=== PATIENT | male | born 1995 | race Hispanic/Latino ===

== ENCOUNTER 2020-04-02 18:31 | Emergency (ER) | payer OTHER, SELFPAY ==
--- NOTE | ~2020-04-02 | CT_ITS ---
EXAMINATION: CT LE LT w con DATE: 04/02/2020 21:43 INDICATION: Increasing left lower leg pain and edema post recent ORIF of a left tibial fracture. TECHNIQUE: High resolution computed tomography (CT) of the left lower leg was performed with 100 mL O mnipaque-350 intravenous contrast. Additional sagittal and coronal reconstructions were performed. Au tomated exposure control and iterative reconstruction technique were employed. The dose-length produc t was 1308.12 mGy-cm. COMPARISON: None FINDINGS: Oblique mildly comminuted mid diaphyseal fracture of the left tibia with antegrade intramedullary frankie with proximal and distal interlocking screw fixation which is in near-anatomic alignment. There is a lso an unfixed mildly comminuted mid diaphyseal fracture of the left fibula with small lateral sided butterfly fragment which is also in near-anatomic alignment. There is some developing nonbridging arnoldo nataly formation developing along the posterior, lateral and anterolateral margins of the tibial fractur e. There is subcutaneous edema beginning at the distal thigh, most prominent medial and lateral to th e patella and the more diffusely about the periphery of the left calf and distally over the dorsum of the foot. No abscess. Small left knee joint effusion without significant enhancing peripheral synovi tis or inflammatory stranding. There is a small amount of expected postoperative gas in the soft tiss ues in the vicinity proximal interlocking screw. No evident atherosclerotic disease along the arterie s of the left lower leg with three-vessel runoff to the ankle. The deep veins of the left calf extend ing to the proximal left popliteal vein. Well opacified with contrast with no evident deep venous thr ombosis. There appears be a central filling defect along the left greater saphenous vein from the ank le to the left [id number] which could represent nonocclusive thrombus or mixing artifact due to t he phase of contrast.. IMPRESSION: 1. Early changes of healing and internally fixed mildly comminuted mid diaphyseal fracture of the lef t tibia which is in near-anatomic alignment. 2. Unfixed mildly comminuted mid fibular diaphyseal fracture also in near-anatomic alignment. 3. No abscess. 4. Central filling defect extending along the greater saphenous vein of the calf which could represen t nonocclusive thrombus or mixing artifact due to phase of contrast. No evident deep venous thrombosi s. Reviewed, dictated and finalized at location H. LR[facility] SCOUT IMPRESSION: 1. Early changes of healing and internally fixed mildly comminuted mid diaphyse al fracture of the left tibia which is in near-anatomic alignment. 2. Unfixed mildly comminuted mid fibular diaphyseal fracture also in near-anato lalo alignment. 3. No abscess. 4. Central filling defect extending along the greater saphenous vein of the arnoldo f which could represent nonocclusive thrombus or mixing artifact due to phase o f contrast. No evident deep venous thrombosis.
[2020-04-02 18:36] VITALS: BP 140/80; PULSE 127; RESP 18; TEMP 36.7; O2SAT 99
--- NOTE | 2020-04-02 19:54 | ED.LOWEXIN ---
HPI - Extremity Injury (Lower) General Chief Complaint: Extremity Injury, Lower Stated Complaint: l leg fracture, increased swelling Time Seen by Provider: 04/02/20 19:45 History of Present Illness HPI Narrative: previously healthy 24 yo presents to the ED for leg swelling. He suffered a tib/fib fracture of the LLE and had sugery at [facility] to repair it last wednesday. He is concerned because it has begun to swell more and become more painful he attempted to cantact his surgeon withut success. He is on lovenox for DVT prophylaxis. No fever, numbness, weakness. Related Data Home Medications Medication Instructions Recorded Confirmed docusate sodium [DOK] 100 mg PO BID 04/02/20 enoxaparin [Lovenox] mg SUBCUT BID 04/02/20 ergocalciferol (vitamin D2) unit PO WEEKLY 04/02/20 oxycodone-acetaminophen 1 tablet PO Q4H PRN 04/02/20 Allergies Allergy/AdvReac Type Severity Reaction Status Date / Time No Known Allergies Allergy Verified 04/02/20 19:47 Review of Systems Review of Systems: All systems reviewed & are unremarkable except as noted in HPI and below Constitutional: Constitutional: Denies fever(s) Cardiovascular: Cardiovascular: Denies chest pain Respiratory: Respiratory: Denies dyspnea Gastrointestinal: Gastrointestinal: Denies abdominal pain and Denies nausea Neurologic: Denies numbness and Denies weakness FOR[facility]LY [facility] Past Medical History Medical History (Updated 04/02/20 @ 22:53 by Tayo Montenegro MD) Fracture of left tibia and fibula Surgical History Surgical History (Updated 04/02/20 @ 22:53 by Tayo Montenegro MD) History of orthopedic surgery Social History Social History (Updated 04/02/20 @ 22:54 by Tayo Montenegro MD) Smoking status: Never smoker Exam Const: General: healthy appearing, no acute distress and alert Orientation/consciousness: patient oriented x3 HENMT: Head: normal to inspection Neck: Neck: normal visual inspection and no lymphadenopathy Chest: Chest palpation & inspection: no tenderness Resp: Effort & Inspection: normal respiratory effort Cardio: Jugular venous distension: no JVD Rate: regular rate Other: 2+ left DP Skin: Other: erythema of the left lower leg. fluctuance at lateral calf incision Neuro: General: patient oriented x3 and moves all extremities Speech: normal speech Extrem: General: edema left (moderate) Psych: Appearance: well kempt Affect: normal affect Course Vital Signs Vital signs: Vital Signs Temperature 36.7 C 04/02/20 18:36 Pulse Rate 127 H 04/02/20 18:36 Respiratory Rate 18 04/02/20 18:36 Blood Pressure 140/80 04/02/20 18:36 Pulse Oximetry 99 04/02/20 18:36 Temperature 36.7 C 04/02/20 18:36 Pulse Rate 127 H 04/02/20 18:36 Respiratory Rate 18 04/02/20 18:36 Blood Pressure 140/80 04/02/20 18:36 Pulse Oximetry 99 04/02/20 18:36 MDM - Extremity Injury (Lower) MDM Narrative Medical decision making narrative: No abscess or evident DVT on CT. exam concerning for cellulitis. Will start on keflex. Already receiving DVT prophylaxis. Differential Diagnosis Differential diagnosis: Likely other (abscess, cellulitis, seroma) Medical Records Attestation: I reviewed the patient's medical records. Lab Data Attestation: I reviewed the patient's lab results. Result diagrams: 04/02/20 20:11 04/02/20 20:11 Labs: Lab Results 04/02/20 04/02/20 Range/Units 20:11 20:11 WBC 8.4 (4.5-10.0) K/mm3 RBC 4.61 (4.6-6.20) M/mm3 Hgb 13.8 L (14.0-18.0) g/dL Hct 38.8 L (42.0-52.0) % MCV 84.2 (80-100) fl MCH 29.9 (26-34) pg MCHC 35.6 (32-36) g/dl RDW 12.6 (11.5-14.5) % Plt Count 369 (150-375) k/mm3 MPV 9.2 (7.4-10.4) fl Immature Gran % (Auto) 0.6 H (0-0.5) % Neut % (Auto) 55.3 (45.5-73.1) % Lymph % (Auto) 29.8 (18.3-44.2) % Kings % (Auto) 9.6 H (2.6-8.5) % Eos % (Auto) 4.5 H (0-4.4) % Baso % (Auto) 0.2 (0.2-1.2
[2020-04-02 20:18] LABS: Basophils Percent Auto 0.2 % (0.2-1.2); Eosinophils Absolute Auto 0.4 K/mm3 (0-0.3); Eosinophils Percent Auto 4.5 % (0-4.4); Hematocrit 38.8 % (42.0-52.0); Hemoglobin 13.8 g/dL (14.0-18.0); Immature Granulocyte Absolute 0.05 K/mm3 (0.00-0.031); Immature Granulocyte Percent A 0.6 % (0-0.5); Lymphocytes Absolute Auto 2.49 K/mm3 (0.9-3.2); Lymphocytes Percent Auto 29.8 % (18.3-44.2); Mean Corpuscular HGB Conc 35.6 g/dl (32-36); Mean Corpuscular Hemoglobin 29.9 pg (26-34); Mean Corpuscular Volume 84.2 fl (80-100); Mean Platelet Volume 9.2 fl (7.4-10.4); Monocytes Absolute Auto 0.8 K/mm3 (0.1-0.6); Monocytes Percent Auto 9.6 % (2.6-8.5); Neutrophils Absolute Auto 4.6 K/mm3 (1.3-6.7); Neutrophils Percent Auto 55.3 % (45.5-73.1); Platelet Count Result 369 k/mm3 (150-375); Red Blood Count 4.61 M/mm3 (4.6-6.20); Red Cell Distribution Width 12.6 % (11.5-14.5); White Blood Count 8.4 K/mm3 (4.5-10.0)
[2020-04-02 20:42] LABS: Anion Gap 7 mmol/L (8-16); Blood Urea Nitrogen 15 mg/dL (9-20); Calcium 8.7 mg/dL (8.4-10.2); Carbon Dioxide 32 mmol/L (22-30); Chloride 97 mmol/L (98-107); Estimated CRCL calculation 127 ml/min; Estimated Glomerular Filt Rate > 60; Glucose 102 mg/dL (75-110); Sodium 136 mmol/L (137-145)
[2020-04-02 23:00] VITALS: BP 116/67; PULSE 68; RESP 14; TEMP 36.8; O2SAT 99
== END 2020-04-02 23:02 | disposition home or self-care (01) ==
PROVIDERS: Emergency Provider Emergency Medicine
DX: T81.41XA Infection following a procedure, superficial incisional surgical site, initial encounter (principal); L03.116 Cellulitis of left lower limb
CPT/HCPCS: 36415; 73701; 80048; 85025; 96365; 99284; J3370; Q9967

== ENCOUNTER 2020-05-01 18:50 | Emergency (ER) | payer OTHER, SELFPAY ==
--- NOTE | ~2020-05-01 | CT_ITS ---
EXAMINATION: CT abdomen pelvis w con EXAM DATE: 05/01/2020 20:15 INDICATION: Right lower quadrant pain. TECHNIQUE: Spiral CT of the abdomen and pelvis was performed following intravenous injection of 100 m L Omnipaque 350. Axial, coronal and sagittal images were reviewed. The dose-length product (DLP) fo r this examination was 867.00 mGy-cm. The exposure was tailored according to patient size (auto mA e xposure control), and iterative reconstruction (ASIR) was used as additional dose reduction technique . There is no prior study for comparison. FINDINGS: The liver, spleen, adrenal glands and pancreas are unremarkable. Gallbladder is unremarkab le. No biliary obstruction. Portal and splenic veins are patent. Kidneys enhance symmetrically. T here is no hydronephrosis. The prostate is unremarkable. The bladder is unremarkable. There is no retroperitoneal or pelvic lymphadenopathy. The appendix is normal. The stomach and small bowel are unremarkable. There is expected amount of c olonic stool. No free intraperitoneal gas. The heart is normal in size. There are no pericardial or pleural effusions. The lung bases are unremarkable. The bones are normal. IMPRESSION: Unremarkable CT abdomen pelvis examination. Reviewed, dictated and finalized at location A. ER HAND
[2020-05-01 18:56] VITALS: BP 147/76; PULSE 103; RESP 18; TEMP 36.7; O2SAT 99
[2020-05-01 19:18] LABS: Basophils Percent Auto 0.4 % (0.2-1.2); Eosinophils Absolute Auto 0.1 K/mm3 (0-0.3); Eosinophils Percent Auto 0.7 % (0-4.4); Hemoglobin 15.5 g/dL (14.0-18.0); Immature Granulocyte Absolute 0.03 K/mm3 (0.00-0.031); Immature Granulocyte Percent A 0.3 % (0-0.5); Lymphocytes Absolute Auto 2.49 K/mm3 (0.9-3.2); Lymphocytes Percent Auto 22.1 % (18.3-44.2); Mean Corpuscular HGB Conc 34.4 g/dl (32-36); Mean Corpuscular Hemoglobin 29.6 pg (26-34); Mean Platelet Volume 9.6 fl (7.4-10.4); Monocytes Absolute Auto 0.7 K/mm3 (0.1-0.6); Monocytes Percent Auto 6.2 % (2.6-8.5); Neutrophils Absolute Auto 7.9 K/mm3 (1.3-6.7); Neutrophils Percent Auto 70.3 % (45.5-73.1); Platelet Count Result 420 k/mm3 (150-375); Red Blood Count 5.23 M/mm3 (4.6-6.20); Red Cell Distribution Width 12.8 % (11.5-14.5); White Blood Count 11.3 K/mm3 (4.5-10.0)
[2020-05-01] MEDS: FAMOTIDINE 20 MG/2 ML VIAL IV PUSH (19:19)
[2020-05-01] MEDS: ONDANSETRON INJ 4 MG/2 ML VIAL IV PUSH (19:19)
[2020-05-01] MEDS: SODIUM CHLORIDE 0.9% IV 1,000 ML 999 ML IV CONT (19:20)
[2020-05-01 19:29] LABS: Alanine Aminotransferase 79 U/L (4-50); Albumin Level 4.6 g/dL (3.5-5.1); Alkaline Phosphatase 109 U/L (38-126); Anion Gap 11 mmol/L (8-16); Aspartate Amino Transferase 37 U/L (17-59); Bilirubin,Total 0.6 mg/dL (0.2-1.3); Blood Urea Nitrogen 12 mg/dL (9-20); Calcium 9.7 mg/dL (8.4-10.2); Carbon Dioxide 27 mmol/L (22-30); Chloride 100 mmol/L (98-107); Estimated CRCL calculation 121 ml/min; Estimated Glomerular Filt Rate > 60; Glucose 101 mg/dL (75-110); Lipase 43 U/L (23-300); Sodium 138 mmol/L (137-145)
--- NOTE | 2020-05-01 20:53 | ED.ABDPAIN ---
HPI - Abdominal Pain General Chief Complaint: Abdominal Pain Stated Complaint: RLQ pain Time Seen by Provider: 05/01/20 18:51 Source: patient and family Mode of arrival: ambulatory Limitations: no limitations History of Present Illness HPI narrative: Patient is a 24-year-old male who presents to emergency department for evaluation of right lower abdominal pain patient was bending over to itch his leg when he developed right lower belly pain worse with activity and movement patient denies any fever chills nausea vomiting patient has been given himself Lovenox shots in this location due to a left lower extremity fracture Related Data Home Medications Medication Instructions Recorded Confirmed docusate sodium [DOK] 100 mg PO BID 04/02/20 enoxaparin [Lovenox] mg SUBCUT BID 04/02/20 ergocalciferol (vitamin D2) unit PO WEEKLY 04/02/20 oxycodone-acetaminophen 1 tablet PO Q4H PRN 04/02/20 cyclobenzaprine 10 mg PO TID 05/01/20 05/01/20 Allergies Allergy/AdvReac Type Severity Reaction Status Date / Time No Known Allergies Allergy Verified 04/02/20 19:47 Review of Systems Review of Systems: All systems reviewed & are unremarkable except as noted in HPI and below PMFSH Past Medical History Medical History Fracture of left tibia and fibula Surgical History Surgical History History of orthopedic surgery Social History Social History Smoking status: Never smoker Exam Narrative: Exam Narrative: GENERAL: Well-appearing, well-nourished, and in no acute distress. HEAD: Normocephalic, atraumatic. EYES: PERRLA and EOMI. ENT: Nares clear, no rhinorrhea or epistaxis. Mucous membranes moist. CHEST: Clear to auscultation. No respiratory distress. No wheezes rales or rhonchi HEART: Regular rate and rhythm. No murmur heard. Normal peripheral pulses. ABDOMEN: Soft, tenderness of the right lower quadrant soft tissues no erythema swelling or deformities, nondistended EXTREMITIES: Normal range of motion. No edema. SKIN: Warm, dry, no rash. NEURO: No focal deficits. Alert and oriented x3. PSYCH: Normal mood and affect. Course Course Emergency Course: Patient in the room no distress aware of case findings treatment plan diagnosis no high risk changes in the blood work or imaging felt to likely be related to his Lovenox shots Vital Signs Vital signs: Vital Signs Temperature 98.1 F 05/01/20 18:56 Pulse Rate 103 H 05/01/20 18:56 Respiratory Rate 18 05/01/20 18:56 Blood Pressure 147/76 H 05/01/20 18:56 Pulse Oximetry 99 05/01/20 18:56 Temperature 98.1 F 05/01/20 18:56 Pulse Rate 103 H 05/01/20 18:56 Respiratory Rate 18 05/01/20 18:56 Blood Pressure 147/76 H 05/01/20 18:56 Pulse Oximetry 99 05/01/20 18:56 MDM - Abdominal Pain MDM Narrative Medical decision making narrative: Patient with belly pain of unknown etiology in the room in no distress aware of case findings treatment plan diagnosis agreeing to follow-up as directed or to return if symptoms worsen or concerns patient afebrile nontoxic-appearing no distress felt appropriate for outpatient reevaluation Lab Data Result diagrams: 05/01/20 19:11 05/01/20 19:11 Labs: Lab Results 05/01/20 05/01/20 Range/Units 19:11 19:11 WBC 11.3 H (4.5-10.0) K/mm3 RBC 5.23 (4.6-6.20) M/mm3 Hgb 15.5 (14.0-18.0) g/dL Hct 45.0 (42.0-52.0) % MCV 86.0 (80-100) fl MCH 29.6 (26-34) pg MCHC 34.4 (32-36) g/dl RDW 12.8 (11.5-14.5) % Plt Count 420 H (150-375) k/mm3 MPV 9.6 (7.4-10.4) fl Immature Gran % (Auto) 0.3 (0-0.5) % Neut % (Auto) 70.3 (45.5-73.1) % Lymph % (Auto) 22.1 (18.3-44.2) % [place] % (Auto) 6.2 (2.6-8.5) % Eos % (Auto) 0.7 (0-4.4) % Baso % (Auto) 0.4 (0.2-1.2) % Lymph # (Auto) 2.4
[2020-05-01 21:15] LABS: Add Urine Microscopic? NO; Appearance Urine Clear (Clear); Bilirubin Urine Negative (Negative); Blood Urine Negative (Negative); Color Urine Yellow (Yellow); Glucose Urine UA Negative (Negative); Ketones Urine Negative (Negative); Leukocyte Esterase Ur Negative LEU/UL (Negative); Nitrate Urine Negative (Negative); Protein Urine Negative (Negative); Urobilinogen Urine Negative mg/dL (<2.0)
[2020-05-01 21:19] LABS: Specific Grav Ur 1.033 (1.001-1.035)
[2020-05-01 21:33] VITALS: BP 120/68; PULSE 76; RESP 16; O2SAT 99
== END 2020-05-01 21:34 | disposition home or self-care (01) ==
PROVIDERS: Emergency Medicine Emergency Medical Services; Emergency Provider Emergency Medicine
DX: R10.31 Right lower quadrant pain (principal)
CPT/HCPCS: 36415; 74177; 80053; 81003; 83690; 85025; 96361; 96374; 96375; 99284; J0131; J2405; J7030; Q9967

== ENCOUNTER 2022-04-10 10:06 | Emergency (ER) | payer SELFPAY ==
--- NOTE | ~2022-04-10 | XR_ITS ---
XR tibia fibula LT 2V DATE: 04/10/2022 11:06 INDICATION: Swelling and redness of the left lower leg. Previous fracture and surgery TECHNIQUE: AP and lateral views of left lower leg COMPARISON: None FINDINGS: There is an intramedullary line of the tibia with a proximal and a distal transverse interl ocking screws. There are old healed fractures of mid shafts of the tibia and fibula. No recent fracture or dislocation, periosteal reaction or bone destruction. Normal alignment at the k nee and ankle joints. IMPRESSION: Status post ORIF tibial shaft fracture. Healed midshaft fractures of tibia and fibula No acute finding is noted Reviewed, dictated and finalized at location A. STANT PROFESSOR OF RADIOLOGY IMPRESSION: Status post ORIF tibial shaft fracture. Healed midshaft fractures o f tibia and fibula No acute finding is noted
--- NOTE | ~2022-04-10 | US_ITS ---
US venous doppler [facility] DATE: 04/10/2022 10:48 INDICATION: Left lower extremity pain TECHNIQUE: Real-time and color flow imaging and Doppler analysis of the veins of the left lower extre mity COMPARISON: None FINDINGS: There is spontaneous and phasic flow and normal augmentation and color flow signal and norm al compression of the deep veins of the left lower extremity. Left greater saphenous vein is patent. IMPRESSION: No evidence of deep venous thrombosis of left lower extremity Reviewed, dictated and finalized at Location A. Reviewed, dictated and finalized at location A. R LAYER HELPER
[2022-04-10 10:07] VITALS: BP 137/78; PULSE 124; RESP 18; TEMP 36.7; O2SAT 98
--- NOTE | 2022-04-10 10:33 | ED.LOWEXIN ---
HPI - Extremity Injury (Lower) General Chief Complaint: Extremity Injury, Lower Stated Complaint: LEFT LEG PAIN Time Seen by Provider: 04/10/22 10:22 History of Present Illness HPI Narrative: Patient is a 26-year-old male here for evaluation of mild left lower extremity swelling and pain over the past day. Patient noticed this when he was getting ready for bed last evening. No known trauma or break in skin integrity. Patient has not taken any medicine for his pain. Patient has a history of tib/fib fracture that underwent repair 2 years ago at [place]. No fevers, chills, nausea, vomiting, chest pain, shortness of breath. No history of blood clots. Related Data Allergies Allergy/AdvReac Type Severity Reaction Status Date / Time No Known Allergies Allergy Verified 04/10/22 10:11 Review of Systems Review of Systems: Gen: Denies fevers or chills Eyes: Denies eye pain or visual change ENT: Denies congestion Respiratory: Denies shortness of breath or cough CV: Denies chest pain or palpitations GI: Denies abdominal pain nausea, emesis or diarrhea : denies burning, urgency, frequency or hematuria Musculoskeletal: Reports left extremity swelling and pain. Neuro: Denies numbness, tingling, weakness or focal weakness Skin: Denies rash Except as documented, all other systems reviewed and negative PMFSH Past Medical History Medical History Fracture of left tibia and fibula Surgical History Surgical History History of orthopedic surgery Social History Social History (System 05/02/20 @ 13:36 by Hamida Simmons) Smoking status: Never smoker Exam Narrative: APPEARANCE: Well appearing, no pain in distress, well-nourished. Head: Normocephalic and atraumatic. EYES: PERRLA/EOMI, conjunctivae clear NOSE: No nasal drainage EARS: External ear normal in appearance THROAT: Oropharynx is clear. Mucous membranes are moist. NECK: Supple. No adenopathy, no masses. RESPIRATORY: Airway patent, respirations nonlabored. Clear to auscultation bilaterally, no rales, rhonchi, wheezing. CARDIOVASCULAR: Regular rate and rhythm without murmurs, rubs, or gallops. ABDOMINAL: Normoactive bowel sounds. Soft, nontender, nondistended. No rebound tenderness or guarding. MUSCULOSKELETAL: Left lower extremity has a 3.5 cm area of blanching erythema around the lateral malleolus with no break in skin integrity. This area is slightly warm but non-tender to palpation. Trace nonpitting edema to left lower extremity. Extremities are warm and well-perfused. Moves all extremities well. No subcutaneous gas/emphysema palpated. NEURO: Normal speech. No focal neurologic deficits. SKIN: Skin is warm and dry. No rashes. PSYCHIATRIC: Normal affect/mood. Course Vital Signs Vital signs: Vital Signs Temperature 98.0 F 04/10/22 10:07 Pulse Rate 124 H 04/10/22 10:07 Respiratory Rate 18 04/10/22 10:07 Blood Pressure 137/78 04/10/22 10:07 Pulse Oximetry 98 04/10/22 10:07 Oxygen Delivery Room Air 04/10/22 10:07 Temperature 98.0 F 04/10/22 10:07 Pulse Rate 102 H 04/10/22 11:27 Respiratory Rate 16 04/10/22 11:27 Blood Pressure 122/83 04/10/22 11:27 Pulse Oximetry 97 04/10/22 11:27 Oxygen Delivery Room Air 04/10/22 10:07 MDM - Extremity Injury (Lower) MDM Narrative Medical decision making narrative: 26-year-old male here for evaluation of left lower extremity pain and redness over the past day and a half. Patient is nontoxic-appearing; initially slightly tachycardic which improved without intervention in the ED. He has no systemic symptoms. He has evidence of nonpitting edema to the left lower extremity and a small area of blanching erythema. The leg compartments are soft; no subcutaneous gas/ pain out of proportion to exam to suggest nec/fac. He has strong distal pulses. There is no eviden
[2022-04-10] MEDS: ACETAMINOPHEN 325 MG TABLET 650 MG PO (10:49)
--- NOTE | 2022-04-10 11:09 | PC.NURSE ---
1100 Assumed pt care from Amanda Leslie RN
[2022-04-10 11:27] VITALS: BP 122/83; PULSE 102; RESP 16; O2SAT 97
== END 2022-04-10 11:30 | disposition home or self-care (01) ==
PROVIDERS: Emergency Provider Physician Assistant; PCP Registered Nurse
DX: L03.116 Cellulitis of left lower limb (principal)
CPT/HCPCS: 73590; 93971; 99284; A9270